=== PATIENT | male | born 1965 | race Caucasian/White ===

== ENCOUNTER 2019-08-22 12:41 | Inpatient (IN) | payer MEDICARE, OTHER ==
[~2019-08-22] VITALS: Ht 182.9 cm; Wt 110.5 kg
[~2019-08-22 12:41] MED LIST: ATEN100 PO; Antivert25 MG PO; CLON.1 PO; DIPH50; DULO30 PO; DULO60 PO; FLUO10; FLUO20; HYDCHL25 PO; HYDHCL25 PO; INDO25 PO; LISI10; LISI20; NORT25; NORT50; OXYACE5T PO; PRED10 PO; PRED20 PO; RISP1; TRAZ100 PO; TRIA80TC TOP; Zofran4 MG PO
[2019-08-22 13:46] LABS: BASOPHILS ABSOLUTE AUTO 0.08 K/mm3 (0.00-0.23); BASOPHILS PERCENT AUTO 1 % (0-2); EOSINOPHILS ABSOLUTE AUTO 0.01 K/mm3 (0.00-0.68); EOSINOPHILS PERCENT AUTO 0 % (0-6); Hematocrit 49.7 % (37.0-53.0); Hemoglobin 16.9 g/dL (13.5-17.5); IMMATURE GRAN ABSOLUTE AUTO 0.03 K/mm3 (0.00-0.10); IMMATURE GRAN PERCENT AUTO 0 % (0-1); LYMPHOCYTES ABSOLUTE AUTO 2.25 K/mm3 (0.84-5.20); LYMPHOCYTES PERCENT AUTO 19 % (21-46); MONOCYTES ABSOLUTE AUTO 0.22 K/mm3 (0.16-1.47); MONOCYTES PERCENT AUTO 2 % (4-13); Mean Corpuscular HGB 31.4 pg (26.0-34.0); Mean Corpuscular Volume 92 fL (80-100); Mean Platelet Volume 9.6 fL (9.1-12.4); NEUTROPHILS ABSOLUTE AUTO 9.03 K/mm3 (1.96-9.15); NEUTROPHILS PERCENT AUTO 78 % (41-73); Platelet Count 279 K/mm3 (150-400); RDW Coefficient Variation 13.1 % (11.7-14.2); RDW Standard Deviation 44.3 fL (35.1-46.3); Red Blood Cell Count 5.38 M/mm3 (4.30-5.90); White Blood Cell Count 11.62 K/mm3 (4.00-11.30)
[2019-08-22 13:47] LABS: Source, Urine Clean Catch
[2019-08-22 13:49] LABS: Bilirubin, Urine Neg (Neg); Blood, Urine Neg (Neg); Glucose Qualitative, Urine Neg (Neg); Ketones, Urine 3+ (Neg); Leukocyte Esterase, Urine Neg (Neg); Nitrite, Urine Neg (Neg); Protein, Urine 2+ (Neg); Specific Gravity, Urine 1.025 (1.003-1.022); Urobilinogen, Urine NORM (Normal)
[2019-08-22 14:00] LABS: International Normalized Ratio 1.18; Prothrombin Time Results 12.5 Sec (9.7-11.5)
[2019-08-22 14:09] LABS: U Amphetamine Screen Not Detected; U Barbituate Screen Not Detected; U Benzodiazapine Screen Not Detected; U Buprenorphine Screen Not Detected; U Cannabinoids Screen DETECTED; U Cocaine Screen Not Detected; U Methadone Screen Not Detected; U Methamphetamine Screen Not Detected; U Opiates Screen Not Detected; U Oxycodone Screen Not Detected; U Phencyclidine Screen Not Detected; U Propoxyphene Screen Not Detected
[2019-08-22 14:10] LABS: Appearance, Urine Clear (Clear); Color, Urine Yellow (P-Yellow)
[2019-08-22 14:11] LABS: Bacteria Few /hpf; Red Blood Cells, Urine 0-2 /hpf (0-2); Squamous Epithelial Cells Few /hpf (Few)
[2019-08-22 14:13] LABS: Alanine Aminotransfer (ALT/SGP 93 U/L (12-78); Albumin/Globulin Ratio 0.8 (0.8-1.8); Alk Phos 68 U/L (50-136); Anion Gap 9 mmol/L (6-16); Aspartate Aminotrans (AST/SGOT 88 U/L (12-37); Bilirubin, Direct 0.2 mg/dL (0.0-0.3); Bilirubin, Indirect 0.4 mg/dL (0.1-0.7); Bilirubin, Total 0.6 mg/dL (0.1-1.0); Blood Urea Nitrogen 16 mg/dL (8-24); CO2, Blood 20 mmol/L (21-32); Calcium, Blood 9.6 mg/dL (8.5-10.1); Chloride, Blood 108 mmol/L (98-108); Creatinine, Blood 0.64 mg/dL (0.60-1.20); Globulin, Blood 4.9 g/dL (2.2-4.0); Glomerular Filtration Rate >60 (60-); Glucose, Blood 125 mg/dL (70-99); Potassium, Blood 4.3 mmol/L (3.5-5.5); Sodium, Blood 137 mmol/L (136-145); Total Protein, Blood 8.9 g/dL (6.4-8.2)
[2019-08-22 14:19] LABS: Acetaminophen, Random 9.2 ug/mL (10.0-30.0); Ethanol (Alcohol), Blood, Med <3 mg/dL; Salicylate <1.7 mg/dL (2.8-20.0); Thyroxine (T4) 10.4 ug/dL (4.5-12.1)
[2019-08-22] MEDS ORDERED: PRAVASTATIN SOD20 MG PO (19:22)
[2019-08-22] MEDS ORDERED: METF500 PO (19:22)
[2019-08-22] MEDS ORDERED: ATEN100 PO (19:23)
[2019-08-22] MEDS ORDERED: ZESTRIL40 M1 PO (19:23)
[2019-08-22] MEDS ORDERED: AMLODIPINE BESYL5 MG PO (19:24)
[2019-08-22] MEDS ORDERED: Ventolin/Prove6.7 GM INH (19:25)
[2019-08-22 20:48] LABS: International Normalized Ratio 1.28; Prothrombin Time Results 13.5 Sec (9.7-11.5)
[2019-08-22 20:52] LABS: Acetaminophen, Random <2.0 ug/mL (10.0-30.0); Alanine Aminotransfer (ALT/SGP 116 U/L (12-78); Aspartate Aminotrans (AST/SGOT 110 U/L (12-37); Salicylate <1.7 mg/dL (2.8-20.0)
--- NOTE | 2019-08-22 22:51 | NUR ---
AFTER ARRIVAL TO UNIT, CALL PLACED TO CANDY STARCH [employer] HOSPITALIST FOR ORDER CLARIFICATION. NURSING RECEIVED IN REPORT THAT PT HAD ADVERSE REACTION TO MUCOMYST IN ER AND ORDER WAS RECEIVED TO D/C MED IF PT CONTINUED TO HAVE A REACTION AFTER BENADRYL WAS ADMINISTERED. REPORTED THAT PT HAD A REACTION TO REGULAR DOSE WITH PAIN/BURNING AT IV AND UP HIS ARM. INFORMED THAT MED WAS STOPPED IN ER. WILL CONTINUE TO MONITOR.
--- NOTE | 2019-08-22 23:15 | NUR ---
SECOND CALL PLACED TO [employer] FOR HOSPITALIST. WAITING FOR RETURN CALL.
--- NOTE | 2019-08-22 23:22 | NUR ---
RECEIVED RETURN CALL FROM [employer]. JUAN FRANCISCO Chaves INSTRUCTED NURSING TO CONTACT MD FOR FURTHER ORDERS. WILL CONTINUE TO MONITOR.
--- NOTE | 2019-08-22 23:22 | NUR ---
CALL PLACED TO DR. SALAS. WAITING FOR CALL BACK. WILL CONTINUE TO MONITOR.
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
--- NOTE | 2019-08-23 00:01 | NUR ---
SECOND CALL PLACED TO DR. SALAS. WAITING FOR CALL BACK. WILL CONTINUE TO MONITOR.
--- NOTE | 2019-08-23 01:02 | NUR ---
THIRD CALL PLACED TO DR. SALAS. WAITING FOR CALL BACK. WILL CONTINUE TO MONITOR.
--- NOTE | 2019-08-23 01:15 | NUR ---
RECEIVED REURN CALL FROM DR. SALAS. INSTRUCTED NURSING TO RESTART MEDS ORIGINALLY ORDERED. WILL CONTINUE TO MONITOR.
[2019-08-23 04:27] LABS: Hematocrit 46.8 % (37.0-53.0); Mean Corpuscular HGB 31.6 pg (26.0-34.0); Mean Corpuscular HGB Conc 34.2 g/dL (31.5-36.5); Mean Corpuscular Volume 92 fL (80-100); Mean Platelet Volume 9.4 fL (9.1-12.4); Platelet Count 248 K/mm3 (150-400); RDW Coefficient Variation 13.3 % (11.7-14.2); RDW Standard Deviation 44.7 fL (35.1-46.3); Red Blood Cell Count 5.07 M/mm3 (4.30-5.90); White Blood Cell Count 11.78 K/mm3 (4.00-11.30)
[2019-08-23 04:48] LABS: Alanine Aminotransfer (ALT/SGP 141 U/L (12-78); Albumin, Blood 3.4 g/dL (3.4-5.0); Albumin/Globulin Ratio 0.7 (0.8-1.8); Alk Phos 52 U/L (50-136); Anion Gap 11 mmol/L (6-16); Aspartate Aminotrans (AST/SGOT 120 U/L (12-37); Bilirubin, Total 0.7 mg/dL (0.1-1.0); Blood Urea Nitrogen 12 mg/dL (8-24); Bun/Creatinine Ratio 21.3 (12.0-20.0); CO2, Blood 22 mmol/L (21-32); Calcium, Blood 8.8 mg/dL (8.5-10.1); Chloride, Blood 105 mmol/L (98-108); Creatinine, Blood 0.56 mg/dL (0.60-1.20); Globulin, Blood 4.6 g/dL (2.2-4.0); Glomerular Filtration Rate >60 (60-); Glucose, Blood 146 mg/dL (70-99); Potassium, Blood 3.9 mmol/L (3.5-5.5); Sodium, Blood 138 mmol/L (136-145)
--- NOTE | 2019-08-23 05:31 | NUR ---
SHIFT SUMMARY RESTING WITH EASE AT THIS TIME. RESPIRATIONS EVEN AND UNLABORED ON RA. HAS NO C/O PAIN THIS SHIFT. CONTINENT OF BOWEL AND BLADDER, USES URINAL AT BEDSIDE. RIGHT HAND PIV IS PATENT BUT TENDER, FLUSHING WITH EASE WHILE INFUSING NS AT 75ML/HR. LEFT OUTER ASPECT OF THE FA PIV IS PATENT, FLUSHING WITH EASE WHILE INFUSING MUCOMYST AT 133ML/HR. DENIES FURTHER NEEDS OR WANTS AT THIS TIME. SAFETY MEASURES IN PLACE. WILL GIVE HAND OFF TO ONCOMING SHIFT USING SBAR.
--- NOTE | 2019-08-23 08:14 | NUR ---
3rd dose of acetadote infusing at this time per bag infusing.
--- NOTE | 2019-08-23 09:07 | NUR ---
DR OLSON HERE TO SEE PT. DISCUSSED IVF/ORDERS.
--- NOTE | 2019-08-23 10:52 | NUR ---
JAIMEE AT [facility] RECENTLY GIVEN UPDATE, RECC AST, ALT, INR APPROX 18:00 THIS EVENING. SEE ORDERS.
[2019-08-23 18:42] LABS: International Normalized Ratio 1.23
[2019-08-23 18:54] LABS: Alanine Aminotransfer (ALT/SGP 117 U/L (12-78); Aspartate Aminotrans (AST/SGOT 92 U/L (12-37)
--- NOTE | 2019-08-23 18:54 | NUR ---
SHIFT SUMMARY PT EATING AND DRINKING, VOIDING. PT BEEN ASSISTED WITH ADL'S PRN. PT BEEN UP IN CHAIR. IVF CONT TO BE INFUSED ORDERED/RECC BY POISON CONTROL.
--- NOTE | 2019-08-24 05:42 | NUR ---
EDUCATED ABOUT HOW GABAPENTIM WORKS TO DECREASE PAIN IN THE LIMBS. HE DID NOT REQUEST OTHER PAIN MEDICATION AND SLEPT ALL NIGHT. HE WAS AWOKEN 2 TIMES FOR VITAL SIGNS AND OTHERS. NO ACUTE CHANGES.
--- NOTE | 2019-08-24 10:33 | NUR ---
DISCUSSED PT'S STATUS WITH POISON CONTROL PER DR OLSON. POISON CONTROL REPORTED OK TO BE DISCHARGED THAT THEY CLOSED THE CASE LAST NIGHT.
[2019-08-24] MEDS ORDERED: GABA100 PO (10:58)
[2019-08-24] MEDS ORDERED: METF500 PO (10:58)
--- NOTE | 2019-08-24 13:45 | NUR ---
DISCHARGE: PT EATING AND DRINKING, VOIDING. PASSING GAS. REPORTS MINIMAL PAIN TO ABD. PT REPORTS UNDERSTANDING OF DISCHARGE INSTRUCTIONS. MEDICATIONS CALLED TO [facility] ON [address] PER PT REQ. IV'S OUT WNL. PT ASSISTED TO CAR. PT DRIVING SELF HOME, HAS HAD NO NARCOTICS. PT HAS BELONGINGS AND PAPERWORK, REPORTS CALLING AND HAVING SCHEDULED APPT WITH HIS
== END 2019-08-24 14:01 | disposition home or self-care (01) | DRG 918 ==
LOC: ER 12:41 → SURS 12:42 → ERHOLD 12:42 → ER 15:18 → SURS 23:31
PROVIDERS: Internal Medicine; Physician Assistant; ADMIT Internal Medicine
DX: T39.1X1A Poisoning by 4-Aminophenol derivatives, accidental (unintentional), initial encounter (principal); G89.29 Other chronic pain; M25.559 Pain in unspecified hip; M79.605 Pain in left leg; M79.602 Pain in left arm; Z89.612 Acquired absence of left leg above knee; R79.89 Other specified abnormal findings of blood chemistry; I10 Essential (primary) hypertension; E11.9 Type 2 diabetes mellitus without complications; Z87.891 Personal history of nicotine dependence
CPT/HCPCS: 36415; 74177; 76705; 80048; 80053; 80076; 81001; 82947; 83690; 84436; 84450; 84460; 85025; 85027; 85610; 90686; 93005; 93010; 94760; 96361; 96365; 96366; 96372; 96375; 96376; 97110; 97116; 97162; 97165; 97530; 99285-25; A9270-GY; G0378; G0480; J0132; J1200; J1650; J2405; J7030; J7060; J7070; Q9967

== ENCOUNTER 2021-07-06 23:37 | Emergency (ER) | payer MEDICARE, OTHER ==
[~2021-07-06] VITALS: Ht 182.9 cm; Wt 113.4 kg
[~2021-07-06 23:37] MED LIST changes: +AMLODIPINE BESYL5 MG PO; +GABA100 PO; +METF500 PO; +PRAVASTATIN SOD20 MG PO; +Ventolin/Prove6.7 GM INH; +ZESTRIL40 M1 PO
[2021-07-07] MEDS ORDERED: PRAV20 PO (01:02)
== END 2021-07-07 01:10 | disposition home or self-care (01) ==
LOC: ER 23:37
DX: M79.605 Pain in left leg (principal); G89.29 Other chronic pain; I10 Essential (primary) hypertension; Z87.891 Personal history of nicotine dependence
CPT/HCPCS: 96372; 99283-25; A9270; J1885

== ENCOUNTER 2022-11-16 05:04 | Observation (INO) | payer MEDICARE, OTHER ==
[~2022-11-16] VITALS: Ht 188 cm; Wt 102.1 kg
[~2022-11-16 05:04] MED LIST changes: +PRAV20 PO
[2022-11-16] MEDS ORDERED: LOSA50 PO (05:36)
[2022-11-16 05:51] LABS: BASOPHILS ABSOLUTE AUTO 0.09 K/mm3 (0.00-0.23); BASOPHILS PERCENT AUTO 1 % (0-2); EOSINOPHILS ABSOLUTE AUTO 0.17 K/mm3 (0.00-0.68); EOSINOPHILS PERCENT AUTO 2 % (0-6); Hematocrit 45.6 % (37.0-53.0); Hemoglobin 15.6 g/dL (13.5-17.5); IMMATURE GRAN ABSOLUTE AUTO 0.02 K/mm3 (0.00-0.10); IMMATURE GRAN PERCENT AUTO 0 % (0-1); LYMPHOCYTES ABSOLUTE AUTO 3.56 K/mm3 (0.84-5.20); LYMPHOCYTES PERCENT AUTO 33 % (21-46); MONOCYTES ABSOLUTE AUTO 0.68 K/mm3 (0.16-1.47); MONOCYTES PERCENT AUTO 6 % (4-13); Mean Corpuscular HGB 30.5 pg (26.0-34.0); Mean Corpuscular HGB Conc 34.2 g/dL (31.5-36.5); Mean Corpuscular Volume 89 fL (80-100); Mean Platelet Volume 9.8 fL (9.1-12.4); NEUTROPHILS ABSOLUTE AUTO 6.23 K/mm3 (1.96-9.15); NEUTROPHILS PERCENT AUTO 58 % (41-73); Platelet Count 237 K/mm3 (150-400); RDW Coefficient Variation 13.2 % (11.7-14.2); RDW Standard Deviation 43.6 fL (35.1-46.3); Red Blood Cell Count 5.12 M/mm3 (4.30-5.90); White Blood Cell Count 10.75 K/mm3 (4.00-11.30)
[2022-11-16 06:12] LABS: Bun/Creatinine Ratio 26.7 (12.0-20.0); Calcium, Blood 9.5 mg/dL (8.5-10.1); Creatinine, Blood 0.79 mg/dL (0.60-1.20)
[2022-11-16 09:04] VITALS: BP 135/89
--- NOTE | 2022-11-16 14:50 | NUR ---
AMA PT TO LEAVE AMA AT 1500. PROVIDER NOTIFIED. APPROPRIATE FORMS SIGNED AND PUT IN THE CHART.
== END 2022-11-16 14:59 | disposition left against medical advice (07) ==
LOC: ER 05:04 → MEDS 05:05
PROVIDERS: Emergency Medicine; ADMIT Internal Medicine
DX: T78.3XXA Angioneurotic edema, initial encounter (principal); I10 Essential (primary) hypertension; E78.5 Hyperlipidemia, unspecified; E11.9 Type 2 diabetes mellitus without complications; Z89.512 Acquired absence of left leg below knee; Z88.1 Allergy status to other antibiotic agents; Z79.84 Long term (current) use of oral hypoglycemic drugs; Z79.899 Other long term (current) drug therapy
CPT/HCPCS: 80048; 85025; A9270; J1100; J1200